=== PATIENT | female | born 1975 | race Caucasian/White ===

== ENCOUNTER → 2016-07-30 | Outpatient (CLI) | payer BC | LOC: EMI 09:00 | DX: R41.3 Other amnesia (principal); R25.1 Tremor, unspecified; R53.83 Other fatigue; R29.898 Other symptoms and signs involving the musculoskeletal system | CPT/HCPCS: 70553; A9577; J7050 ==

== ENCOUNTER → 2016-08-13 | Outpatient (CLI) | payer BC | LOC: CT 08:30 → KOH-I 08:34 → CT 08:34 | DX: G45.3 Amaurosis fugax (principal) | CPT/HCPCS: 70496; 70498; Q9962 ==

== ENCOUNTER 2016-12-25 15:43 | Emergency (ER) | payer BC ==
[2016-12-25 16:14] LABS: HEMOGLOBIN 13.7 gm/dl (12.3-15.3); RED BLOOD COUNT 4.57 M/UL (4.00-5.10)
[2016-12-25 16:49] LABS: BUN/CREATININE RATIO 10 (0-10)
== END 2016-12-25 19:27 | disposition home or self-care (01) ==
LOC: ER1 15:43
PROVIDERS: Emergency Medicine
DX: R00.0 Tachycardia, unspecified (principal); E28.2 Polycystic ovarian syndrome; Z79.899 Other long term (current) drug therapy
CPT/HCPCS: 36415; 71020; 80053; 82550; 82553; 83874; 83880; 84443; 84484; 85025; 85379; 96360; 96361; 99285